=== PATIENT | male | born 1945 | race Caucasian/White ===

== ENCOUNTER 2018-09-13 08:18 | Day surgery (SDC) | payer OTHER, BC ==
[2018-09-13] MEDS ORDERED: PROPOFOL 40 ML (10:01)
[2018-09-13] MEDS ORDERED: LIDOCAINE 2% (SDV) 5 ML INJ (10:01)
[2018-09-13] MEDS ORDERED: OXYCODONE/ACETAMINOPHEN (5/325) TAB PO ×2 (11:00)
[2018-09-13] MEDS ORDERED: ONDANSETRON 4 MG INJ IV (11:00)
[2018-09-13] MEDS ORDERED: FENTAnyl 50 MCG/ML VIAL IV ×2 (11:00)
[2018-09-13] MEDS ORDERED: LABETALOL HCL 20MG INJ IV (11:00)
[2018-09-13] MEDS ORDERED: MEPERIDINE 25 MG INJ IV (11:00)
== END 2018-09-13 14:14 | disposition home or self-care (01) ==
LOC: GIL 08:18
DX: Z12.11 Encounter for screening for malignant neoplasm of colon (principal); K57.30 Diverticulosis of large intestine without perforation or abscess without bleeding; K44.9 Diaphragmatic hernia without obstruction or gangrene; K29.50 Unspecified chronic gastritis without bleeding; I10 Essential (primary) hypertension
CPT/HCPCS: 43239; 88305; 88312